=== PATIENT | male | born 1945 | race Caucasian/White ===

== ENCOUNTER → 2024-02-15 11:59 | Outpatient (BNVA) | payer MEDICARE, OTHER, SELFPAY | PROVIDERS: Family Provider Family Medicine; PCP Family Medicine; Visit Provider Family Medicine | DX: D64.9 Anemia, unspecified (principal); N40.0 Benign prostatic hyperplasia without lower urinary tract symptoms; R97.20 Elevated prostate specific antigen [PSA]; R41.3 Other amnesia | CPT/HCPCS: 82607; 86592; 87086 ==